=== PATIENT | male | born 1970 | race African-American/Black ===

== ENCOUNTER 2024-06-13 03:52 | Emergency (ER) | payer OTHER ==
[~2024-06-13] VITALS: Ht 182.9 cm; Wt 91.0 kg
[2024-06-13 03:56] VITALS: O2SAT 100
[2024-06-13 05:29] LABS: BASOPHILS % 0.6 % (0.0-2.0); EOSINOPHILS % 0.9 % (0.0-5.0); HEMATOCRIT. 43.2 % (42.0-52.0); HEMOGLOBIN. 14.6 g/dL (14.0-18.0); MEAN CORPUSCULAR HGB CONC 33.9 g/dL (31.0-37.0); MEAN CORPUSCULAR VOLUME 97.3 fL (80.0-94.0); MEAN PLATELET VOLUME 8.3 fl (7.4-10.4); MONOCYTES % 7.9 % (2.0-8.0); NEUTROPHILS % 69.6 % (40.0-76.0); PLATELET 160 x1000/uL (130-400); RED BLOOD CELL COUNT 4.43 mill/uL (4.7-6.1); RED CELL DISTRIBUTION WIDTH 14.9 % (11.6-14.6); WHITE BLOOD COUNT 7.5 x1000/uL (4.5-11.0)
[2024-06-13 05:38] LABS: CHLORIDE 106 mEq/L (98-107); SODIUM 139 mEq/L (136-145)
[2024-06-13 05:39] LABS: CARBON DIOXIDE 24 mEq/L (21-32)
[2024-06-13 05:40] LABS: CALCIUM 9.6 mg/dL (8.7-10.4)
[2024-06-13 05:44] LABS: CREATININE 0.9 mg/dL (0.6-1.3); GLUCOSE 66 mg/dL (70-105)
[2024-06-13 05:45] LABS: UREA NITROGEN BLOOD 20 mg/dL (9-23)
[2024-06-13] MEDS: SODIUM CHLORIDE 0.9% 1,000 ML IV ONE (06:48)
[2024-06-13] MEDS: KETOROLAC 30MG/ML VIAL IV STA (06:49)
[2024-06-13] MEDS: METOCLOPRAMIDE HCL 10MG/2ML VIAL IV ONE (06:50)
[2024-06-13] MEDS ORDERED: TOPUD PO (07:33)
[2024-06-13 08:55] VITALS: BP 114/67; PULSE 74; RESP 18; TEMP 37.05852; O2SAT 100
== END 2024-06-13 08:56 | disposition home or self-care (01) ==
LOC: ER 04:15
DX: G44.209 Tension-type headache, unspecified, not intractable (principal); R05.9 Cough, unspecified; Z95.0 Presence of cardiac pacemaker
CPT/HCPCS: 80048; 83880; 85025; 36415; 71045; 96361; 96374; 96375; 99284; J1885; J2765; J7030; Z7610 ×2